=== PATIENT | female | born 1970 | race Caucasian/White ===

== ENCOUNTER 2019-04-21 10:21 | Emergency (ER) | payer OTHER ==
[~2019-04-21] VITALS: Ht 162.6 cm; Wt 63.5 kg
[~2019-04-21 10:21] MED LIST: DICY20TA PO; ORTHO TRI-7 DAYSX 3
[2019-04-21] MEDS ORDERED: ZITHROMAX500 MG PO (13:25)
== END 2019-04-21 13:32 | disposition home or self-care (01) ==
LOC: ER 10:21
DX: B33.8 Other specified viral diseases (principal); B96.0 Mycoplasma pneumoniae [M. pneumoniae] as the cause of diseases classified elsewhere; D25.1 Intramural leiomyoma of uterus; N83.292 Other ovarian cyst, left side; R10.2 Pelvic and perineal pain; R53.81 Other malaise

== ENCOUNTER 2021-09-08 09:45 | Emergency (ER) | payer OTHER ==
[~2021-09-08] VITALS: Ht 162.6 cm; Wt 61.2 kg
[~2021-09-08 09:45] MED LIST changes: +ZITHROMAX500 MG PO
== END 2021-09-08 18:59 | disposition home or self-care (01) ==
LOC: ER 09:45
DX: R10.84 Generalized abdominal pain (principal); R19.7 Diarrhea, unspecified